=== PATIENT | female | born 1935 | race Caucasian/White ===

== ENCOUNTER 2016-11-12 11:09 | Observation (INO) ==
--- NOTE | 2016-11-12 11:24 | Emergency Department Note ---
Disposition Clinical Impression: Hypoxia, Acute exacerbation of chronic obstructive airways disease Left rib fracture Qualifiers: Encounter type: initial encounter Rib fracture type: single rib Fracture type: closed Qualified Code(s): S22.32XA - Fracture of one rib, left side, initial encounter for closed fracture Disposition: Admitted As Inpatient Condition: Good Referrals: NO,PCP [Non-Partnered Physician] - Forms: ED Satisfaction Letter SOB HPI - General Chief Complaint: ED Shortness of Breath/Dyspnea Stated Complaint: SEBLE/Left rib fracture Time Seen by Provider: 11/12/16 11:15 Source: patient Limitations: no limitations - History of Present Illness 81-year-old female history of A. fib on anticoagulation with Coumadin who presents to the ER with left rib pain and shortness of breath. Patient reports she recently fell a few days ago landing on her left ribs on a coffee table. Denies loss of consciousness or prodromal symptoms. Patient was seen in another facility and diagnosed with the ninth left rib fracture. Patient reports today she had worsening pain at home and was having worsening shortness of breath. She reports a cough with productive yellow sputum. She denies a history of DVT or PE. No other complaints. Pt Subjective Complaint: shortness of breath Onset (ago): hour(s) Context: other (Recent rib fracture) Severity: moderate Consistency/Duration: constant Improves with: nothing Worsens with: nothing Known history of: other (Rib fracture) Associated symptoms: Reports: pain with inspiration, cough, sputum production Treatment prior to arrival: none Cough present: Yes Cough Description: Involuntary Cough Frequency: Intermittent Sputum production: Yes Sputum Amount: Small Sputum Color: Yellow - Related Data Home oxygen amount: none Home Medications Medication Instructions Recorded Confirmed Albuterol Sulfate [Albuterol 2 puff IH Q6HR 11/20/15 03/08/16 Inhaler] Amlodipine [Norvasc] 5 mg PO DAILY 11/20/15 03/08/16 Budesonide/Formoterol 160/4.5 2 puff IH BIDR 11/20/15 03/08/16 [Symbicort 160/4.5] Cholecalciferol (Vitamin D3) 2,000 unit PO DAILY 11/20/15 03/08/16 [Vitamin D] Furosemide [Lasix] 40 mg PO BID 11/20/15 03/08/16 Isosorbide MONOnitrate (24 HR) 60 mg PO DAILY 11/20/15 03/08/16 [Imdur] Levothyroxine [Synthroid] 137 mcg PO 0630 11/20/15 03/08/16 Breaks-3/Dha/Epa/Fish Oil [Fish Oil 900 mg PO DAILY 11/20/15 03/08/16 1,000 mg Softgel] Omeprazole [PriLOSEC] 40 mg PO DAILY 11/20/15 03/08/16 Pnv with Ca,No.72/Iron,Carb/FA 1 tab PO DAILY 11/20/15 03/08/16 [ Plus Iron Tablet] Polyethylene Glycol 3350 [MiraLAX] 17 gm PO DAILY 11/20/15 03/08/16 Potassium Chloride [Klor-Con] 20 meq PO DAILY 11/20/15 03/08/16 Simvastatin [Zocor] 10 mg PO DAILY 11/20/15 03/08/16 Warfarin [Coumadin] 5 mg PO DAILY 11/20/15 03/08/16 Albuterol Neb [Proventil Neb] 2.5 mg IH BID 03/08/16 03/08/16 Calcium Carbonate [Calcium] 600 mg PO TID 03/08/16 03/08/16 Gabapentin [Neurontin] 300 mg PO TID 03/08/16 03/08/16 Metoprolol Tartrate [Lopressor] 50 mg PO BID 03/08/16 03/08/16 Mometasone Furoate [Elocon] 1 appl TP BID 03/08/16 03/08/16 Nitroglycerin [Nitrostat] 0.4 mg SL AD PRN 03/08/16 03/08/16 Losartan/HCTZ [Hyzaar 50-12.5 1 each PO DAILY 11/09/16 11/09/16 Tablet] Previous Rx's Medication Instructions Recorded HYDROcodone/Acet 5/325 mg [[place] 1 tab PO Q8H PRN #5 tab 11/10/16 5-325 mg] Allergies Allergy/AdvReac Type Severity Reaction Status Date / Time Milk Containing Products AdvReac Cough Verified 11/09/16 22:48 All systems ED: reviewed and negative except as stated. Constitutional: Denies: fever Cardiovascular: Reports: chest pain Respiratory: Reports: cough, dyspnea. Denies: wheezes, hemoptysis Gastrointestinal: Denies: abdominal pain, nausea, vomiting Musculoskeletal: Denies: back pain, neck pain Past Medical History - Past Medical History Attestation: Yes The following information was validated with the patient. Source: patient Medical history: Reports: asthma, atrial fibrillation, COPD, coronary artery disease, GERD, hyperlipidemia, hypertension, osteoporosis, thyroid disease, other Surgical history: Reports: appendectomy, cholecystectomy, hysterectomy, knee replacement, orthopedic, other, other Psychiatric history: Reports: depression - Social History Smoking Status: Never smoker Smokeless Tobacco Status: No Alcohol use: Reports: none Drug use: Reports: none Physical Exam - General Limitations: no limitations General appearance: alert, in no apparent distress - Head Head exam: atraumatic, normocephalic, normal inspection - Eye Eye exam: Present: normal appearance, EOMI - ENT ENT exam: normal exam - Neck Neck exam: Present: normal inspection - Chest Chest inspection: Present: normal inspection, symmetric chest wall rise, tenderness (Tenderness to palpate along the left inferior rib margins), other ( There is ecchymosis overlying the left inferior ribs going into the left flank.) - Respiratory Respiratory exam: Present: normal lung sounds bilaterally - Cardiovascular Cardiovascular exam: Present: normal rhythm, tachycardia, normal heart sounds - Abdominal Exam Abdominal exam: Present: soft, Non-Tender. Absent: tenderness - Extremities Exam Extremities exam: Present: normal inspection, full ROM - Expanded Upper Extremity Exam Shoulder exam: Present: normal inspection, full ROM Arm exam: Present: normal inspection, full ROM Elbow exam: Present: normal inspection, full ROM Forearm/Wrist exam: Present: normal inspection, full ROM Hand exam: Present: normal inspection, full ROM - Expanded Lower Extremity Exam Hip/Pelvis exam: Present: normal inspection, full ROM Upper leg exam: Present: normal inspection, full ROM Knee exam: Present: normal inspection, full ROM Lower leg exam: Present: normal inspection, full ROM Ankle exam: Present: normal inspection, full ROM Foot/toe exam: Present: normal inspection, full ROM - Neurological Exam Neurological exam: Present: alert - Psychiatric Psychiatric exam: Present: normal affect, normal mood - Skin Skin exam: Present: warm, dry, intact, normal color Course Course Narrative: Patient seen and examined. Vital signs reviewed. We will get an EKG, chest x- ray as well as basic labs including coag studies. She does have an oxygen requirement here being 88-89% on room air. Vital Signs Temperature 98.5 F 03/24/17 11:13 Pulse Rate 112 11/12/16 11:13 Respiratory Rate 18 11/12/16 11:13 Blood Pressure 109/88 11/12/16 11:13 O2 Sat by Pulse Oximetry 90 L 11/12/16 11:13 Temperature 98.5 F 11/12/16 11:13 Pulse Rate 112 11/12/16 11:13 Respiratory Rate 18 11/12/16 11:13 Blood Pressure 109/88 11/12/16 11:13 O2 Sat by Pulse Oximetry 90 L 11/12/16 11:13 Oxygen Delivery Oxygen Delivery Room Air Shortness of Breath/Dyspnea - MDM Narrative Medical decision making narrative: 81-year-old female presents to the ER due to left rib pain status post fall 2 days ago when she was diagnosed with a rib fracture. Also had increasing shortness of breath. She was initially hypoxic here on 88-89% on room air. Easily corrected with nasal cannula oxygen supplementation. EKG demonstrates atrial fibrillation which is chronic. Patient given IV fentanyl here for pain control. Admitted to the hospitalist service for pain control and hypoxia. - Lab Data Lab results reviewed: Yes I reviewed the patient's lab results. Result diagrams: 11/12/16 12:34 11/12/16 12:34 Lab Results 11/12/16 11/12/16 11/12/16 Range/Units 12:34 12:34 12:34 WBC 6.9 (4.3-11.1) K/mcL RBC 4.24 (3.82-4.97) M/mcL Hgb 12.9 (11.5-15.4) g/dL Hct 39.1 (35.3-44.9) % MCV 92.2 (83.0-100.0) fL MCH 30.4 (28.0-33.3) pg MCHC 33.0 (31.6-35.5) g/dL RDW 13.3 (11.5-14.5) % Plt Count 182 (140-400) K/mcL MPV 9.5 (9.4-12.4) fL Immature Gran % 0.1 (0-4) % Seg Neutrophils % 63.9 % Lymphocytes % 19.2 % Monocytes % 7.5 % Eosinophils % 8.6 % Basophils % 0.7 % Neutrophils # 4.4 (1.6-8.9) K/mcL Lymphocytes # 1.3 (0.6-4.6) K/mcL Monocytes # 0.5 (0.0-1.3) K/mcL Eosinophils # 0.6 (0.0-0.6) K/mcL Basophils # 0.1 (0.0-0.2) K/mcL PT 22.4 H (9.4-12.1) Seconds INR 2.0 Sodium 139 (136-145) mEq/L Potassium 2.9 L (3.5-4.5) mEq/L Chloride 101 (98-109) mEq/L Carbon Dioxide 29 (19-29) mEq/L BUN 26 H (7-20) mg/dL Creatinine 0.85 (0.57-1.11) mg/dL Est GFR ( Amer) > 60 (> 60) Est GFR (Non-Af Amer) > 60 (> 60) BUN/Creatinine Ratio 31 H (6-26) Glucose 110 H (70-99) mg/dL Calculated Osmolality 293 (280-300) Calcium 9.2 (8.6-10.8) mg/dL Troponin I (0-0.03) ng/mL B-Natriuretic Peptide (0-100) pg/mL 11/12/16 11/12/16 Range/Units 12:34 12:34 WBC (4.3-11.1) K/mcL RBC (3.82-4.97) M/mcL Hgb (11.5-15.4) g/dL Hct (35.3-44.9) % MCV (83.0-100.0) fL MCH (28.0-33.3) pg MCHC (31.6-35.5) g/dL RDW (11.5-14.5) % Plt Count (140-400) K/mcL MPV (9.4-12.4) fL Immature Gran % (0-4) % Seg Neutrophils % % Lymphocytes % % Monocytes % % Eosinophils % % Basophils % % Neutrophils # (1.6-8.9) K/mcL Lymphocytes # (0.6-4.6) K/mcL Monocytes # (0.0-1.3) K/mcL Eosinophils # (0.0-0.6) K/mcL Basophils # (0.0-0.2) K/mcL PT (9.4-12.1) Seconds INR Sodium (136-145) mEq/L Potassium (3.5-4.5) mEq/L Chloride (98-109) mEq/L Carbon Dioxide (19-29) mEq/L BUN (7-20) mg/dL Creatinine (0.57-1.11) mg/dL Est GFR ( Amer) (> 60) Est GFR (Non-Af Amer) (> 60) BUN/Creatinine Ratio (6-26) Glucose (70-99) mg/dL Calculated Osmolality (280-300) Calcium (8.6-10.8) mg/dL Troponin I 0.02 (0-0.03) ng/mL B-Natriuretic Peptide 90 (0-100) pg/mL - Radiology Data Radiology results reviewed: Yes I reviewed the patient's radiology results. Chest X-Ray 11/12/16 11:17 IMPRESSION: COPD without evidence of superimposed acute cardiopulmonary process. D/ / 11/12/2016 11:50:57 Leonides Chong MD / Lindsay Vallejo Interpreting Provider: Leonides Chong MD - EKG Data EKG attestation: Yes I reviewed and interpreted this EKG. EKG results narrative: EKG demonstrates atrial fibrillation with RVR with a rate of 108. Normal axis. QRS duration 90 QTc 389 there is T-wave flattening in the inferior leads. No ST elevations or depressions. No acute ischemic findings. No significant changes from previous EKG dated 06/29/15. S.B.A.R. - S.B.A.R. Situation: Demographics, MOA Background: Presenting Complaint, Relevant PMH, Meds, & Allergies Assessment: Vital Signs, Course and respsone to treatment, Exam Concerns, Patient/Family Expectation, Pertinant Lab Results, Outstanding Labs Recommendation: Barrier(s) to disposition, Recommendation based on pending studies, treatments, or consults S.B.A.R. Report Given to: Sandra DickeyBAmberASergio Repor Time: 14:08 Attestation Statement - Attestation Attestation: I personally interviewed and examined this patient and my medical decision- making was reviewed with the ED Resident Physician, Dr. Sibley. I agree with the documented findings, disposition and treatment plan as described in the documentation. Patient in a 1-year-old white female history of COPD who presents to the emergency department today with worsening shortness of breath following a fall with subsequent rib fracture last week. Patient states she has been having ongoing chest wall pain in the area of the rib fracture as well as shortness of breath. Patient arrives with hypoxia room air, is not on oxygen at home. Patient was here concerned with possible pneumonia. Patient is in no respiratory distress on arrival despite the reported hypoxia, able to talk in complete sentences. She denies any chest pain or heaviness no diaphoresis, no other associated symptoms. On exam patient had some coarse breath sounds in the left lung base but equal excursion bilaterally. She was placed on supplemental oxygen and chest imaging was negative for any infiltrate or pleural effusion. Labs were unremarkable including a negative troponin and EKG was within normal limits. We will admit patient for further respiratory therapy, pain control and monitoring.
[2016-11-12 12:41] LABS: Basophils # 0.1 K/mcL (0.0-0.2); Basophils % 0.7 %; Eosinophils # 0.6 K/mcL (0.0-0.6); Eosinophils % 8.6 %; Hematocrit 39.1 % (35.3-44.9); Hemoglobin 12.9 g/dL (11.5-15.4); Immature Granulocytes % 0.1 % (0-4); Lymphocytes # 1.3 K/mcL (0.6-4.6); Lymphocytes % 19.2 %; Mean Corpuscular Hemoglobin 30.4 pg (28.0-33.3); Mean Corpuscular Volume 92.2 fL (83.0-100.0); Mean Platelet Volume 9.5 fL (9.4-12.4); Monocytes # 0.5 K/mcL (0.0-1.3); Monocytes % 7.5 %; Neutrophils # 4.4 K/mcL (1.6-8.9); Platelet Count 182 K/mcL (140-400); Red Blood Count 4.24 M/mcL (3.82-4.97); Red Cell Distribution Width 13.3 % (11.5-14.5); Segmented Neutrophils % 63.9 %
[2016-11-12 12:47] LABS: Prothrombin Time 22.4 Seconds (9.4-12.1)
[2016-11-12 12:55] LABS: BUN/Creatinine Ratio 31 (6-26); Blood Urea Nitrogen 26 mg/dL (7-20); Calcium 9.2 mg/dL (8.6-10.8); Carbon Dioxide 29 mEq/L (19-29); Chloride 101 mEq/L (98-109); Glucose 110 mg/dL (70-99); Osmolality,Calculated 293 (280-300); Potassium 2.9 mEq/L (3.5-4.5); Sodium 139 mEq/L (136-145); eGFR For African Americans > 60 (> 60); eGFR For Non-African Americans > 60 (> 60)
[2016-11-12] MEDS ORDERED: *HR* FentaNYL (PF) 100 MCG/2 ML VIAL IVP ONE (13:40)
[2016-11-12] MEDS ORDERED: Naloxone 0.4 MG/ML INJ IVP PRN (16:35)
[2016-11-12] MEDS ORDERED: Albuterol 2.5 MG/3 ML NEBULIZER IH PRN (16:36)
[2016-11-12] MEDS ORDERED: *HR* Morphine 2 MG/ML SYRINGE IVP PRN (16:36)
[2016-11-12] MEDS ORDERED: methylPREDNISolone 125 MG/2 ML VIAL IVP ONE (16:40)
[2016-11-12] MEDS ORDERED: Nitroglycerin 0.4 MG TAB.SUBL SL PRN (16:51)
[2016-11-12] MEDS ORDERED: Potassium Chloride 40 MEQ, Lidocaine 1% 2 ML in D5% in Water 500 ML IVPB ONE (16:58)
[2016-11-12] MEDS: Ipratropium/Albuterol Neb 3 ML IH SCH ×2 (17:07→23:05)
[2016-11-12] MEDS: Furosemide 40 MG TABLET PO SCH (18:04)
[2016-11-12] MEDS: *HR* Warfarin 5 MG TABLET PO SCH (19:01)
[2016-11-12] MEDS: Gabapentin 300 MG CAPSULE PO SCH (20:59)
[2016-11-12] MEDS: *HR* HYDROcodone/Acet 5/325 mg TABLET PO PRN (21:00)
--- NOTE | 2016-11-12 21:14 | Internal Med History&Physical ---
<AcostaSandra M - Last Filed: 11/13/16 00:45> Date of Encounter: 11/12/16 Time of Encounter: 21:07 Assessment and Plan (1) Acute exacerbation of chronic obstructive airways disease Current visit: Yes Status: Acute Patient with increased shortness of breath, cough, wheezing satting 88-89% in room air, improved saturations on 2 L nasal cannula. Chest x-ray shows COPD without acute cardiopulmonary process. On exam patient with diffuse wheezes bilaterally. Solu-Medrol one time dose of 125 mg IV push, followed by 40 mg 3 times a day. DuoNeb treatments 4 times a day Albuterol nebulizer every 2 when necessary Titrate oxygen to maintain oxygen saturation greater than 92% (2) Hypoxia Current visit: Yes Status: Acute Patient with increased shortness of breath, cough, wheezing satting 88-89% in room air, improved saturations on 2 L nasal cannula. (3) Left rib fracture Current visit: Yes Status: Acute Patient fell a few days ago, suffering a fracture of her left 9th rib. Her pain is not well controlled at home. Teach patient to splint with cough. [place] and Morphine PRN for pain Narcan PRN for respiratory depression. Qualifiers: Encounter type: subsequent encounter Rib fracture type: single rib Fracture type: closed Fracture healing: with routine healing Qualified Code( s): S22.32XD - Fracture of one rib, left side, subsequent encounter for fracture with routine healing (4) DVT prophylaxis Current visit: Yes Status: Acute Ambulate with assistance anti-embolic stockings Continue patient's home dose of coumadin. Internal Medicine - H&P: HPI Chief complaint: shortness of breath Admitted From: Emergency Dept Plans for Post Hospital Care: Home History of present illness: Ms. Erickson is a 81 year old female GERD, who presented to the emergency department today with complaints of shortness of breath, wheezing and pain after suffering a rib fracture a few days ago. Patient reports that since her rib fracture she has developed increasing shortness of breath and cough. The patient reports that she has audible wheezes and rattles that improved after DuoNeb treatment in the emergency department. She is not on oxygen at home but was satting 88-89% on room air on presentation patient reports she felt a little bit lightheaded, and nauseous. Headache, chest pain, palpitations, abdominal pain, vomiting, diarrhea. She endorses some constipation that she attributes to the narcotic pain medicine she has been put on for rib fracture. Evaluation in the emergency department included a chest x-ray which showed COPD without acute cardiopulmonary process. She was hypokalemic with potassium of 2.9. INR was therapeutic at 2.0. Troponin was negative at 0.02. BNP was normal at 90. On exam, patient is alert and oriented, in no acute distress. She has diffuse wheezing bilaterally. Heart has regular rate and rhythm. She is tender to palpation over left lateral side and has a hematoma in her left lateral side. Past Med Surg Social Fam HX - Past Medical History Medical history: asthma, atrial fibrillation, COPD, coronary artery disease, GERD, hyperlipidemia, hypertension, osteoporosis, thyroid disease, other Psychiatric history: depression - Past Surgical History Surgical History: appendectomy, cholecystectomy, hysterectomy, knee replacement , orthopedic, other, other - Social History Smoking Status: Never smoker Smokeless Tobacco Status: No Alcohol use: none Drug use: none - Family History Mother Hx Family Cancer: Yes (Colon CA) Father Hx Family Cancer: Yes (Bladder CA) Internal Medicine - H&P: Meds Albuterol Sulfate [Albuterol Inhaler] 2 puff IH Q6HR 11/20/15 [History] Amlodipine [Norvasc] 5 mg PO DAILY 11/20/15 [History] Budesonide/Formoterol 160/4.5 [Symbicort 160/4.5] 2 puff IH BIDR 11/20/15 [ History] Cholecalciferol (Vitamin D3) [Vitamin D] 2,000 unit PO DAILY 11/20/15 [History] Furosemide [Lasix] 40 mg PO BID 11/20/15 [History] Isosorbide MONOnitrate (24 HR) [Imdur] 60 mg PO DAILY 11/20/15 [History] Levothyroxine [Synthroid] 137 mcg PO 0630 11/20/15 [History] [place]-3/Dha/Epa/Fish Oil [Fish Oil 1,000 mg Softgel] 900 mg PO DAILY 11/20/15 [ History] Omeprazole [PriLOSEC] 40 mg PO DAILY 11/20/15 [History] Pnv with Ca,No.72/Iron,Carb/FA [ Plus Iron Tablet] 1 tab PO DAILY [History] Polyethylene Glycol 3350 [MiraLAX] 17 gm PO DAILY 11/20/15 [History] Potassium Chloride [Klor-Con] 20 meq PO DAILY 11/20/15 [History] Simvastatin [Zocor] 10 mg PO DAILY 11/20/15 [History] Warfarin [Coumadin] 5 mg PO 6XW 11/20/15 [History] Albuterol Neb [Proventil Neb] 2.5 mg IH BID 03/08/16 [History] Gabapentin [Neurontin] 300 mg PO TID 03/08/16 [History] Metoprolol Tartrate [Lopressor] 50 mg PO BID 03/08/16 [History] Mometasone Furoate [Elocon] 1 appl TP BID 03/08/16 [History] Nitroglycerin [Nitrostat] 0.4 mg SL AD PRN 03/08/16 [History] Losartan/HCTZ [Hyzaar 50-12.5 Tablet] 1 each PO DAILY 11/09/16 [History] HYDROcodone/Acet 5/325 mg [[place] 5-325 mg] 1 tab PO Q8H PRN #5 tab 11/10/16 [Rx] Acetylcysteine [Nac] 500 mg PO DAILY 11/12/16 [History] Calcium Crb,Cit/D3/Min34/[place] [Citracal + Bone Density Tablet] 1 tab PO DAILY 11/12/16 [History] Warfarin [Coumadin] 2.5 mg PO WHITE 11/12/16 [History] Allergies Milk Containing Products Adverse Reaction (Verified 11/09/16 22:48) Cough All Systems PM: A 10-system review of systems was performed and is negative for pertinent findings except as documented above in the HPI. - Constitutional Constitutional: no chills, no fever(s), no night sweats - EENT Eyes: no change in vision, no discharge, no pain, no photophobia Ears: no ear discharge, no ear pain, no tinnitus Nose, mouth and throat: no dysphagia, no nasal discharge, no neck pain, no sore throat - Cardiovascular Cardiovascular ROS IM: no chest pain, no diaphoresis, no dyspnea, no lightheadedness, no palpitations, no syncope - Respiratory Respiratory: cough, dyspnea on exertion, wheezing, excessive phlegm production - Gastrointestinal Gastrointestinal: constipation, no abdominal pain, no diarrhea, no hematemesis, no hematochezia, no melena, no nausea, no vomiting - Genitourinary Genitourinary: no change in urinary stream, no dysuria, no flank pain, no hematuria - Musculoskeletal Musculoskeletal ROS IM: no numbness, no tingling - Integumentary Integumentary IM: no rash, no unusual bruising - Neurological Neurological ROS: no confusion, no convulsions, no focal weakness, no numbness, no tingling, no tremor(s) - Hematologic/Lymphatic Hematologic/Lymphatic: easy bruising - Constitutional Vitals: Temp Pulse Resp BP Pulse Ox 98 F 83 16 146/87 95 11/12/16 19:09 11/12/16 19:09 11/12/16 19:09 11/12/16 19:09 11/12/16 19:09 General appearance: Present: A&O X 3, pleasant, no acute distress - Head Head exam: Present: atraumatic, normocephalic - Eye Eye exam: Present: PERRL, conjuntiva pink, sclera anicteric Pupils: Present: PERRL - Neck Neck exam general surgery: Present: supple, trachea midline. Absent: lymphadenopathy - Respiratory Respiratory exam: Present: wheezes. Absent: accessory muscle use, rales, rhonchi - Cardiovascular Cardiovascular exam: Present: RRR, +S1, +S2. Absent: diastolic murmur, gallop, rubs, systolic murmur - GI/Abdominal GI/Abdominal exam: Present: normal bowel sounds, soft, no peritoneal signs. Absent: distended, tenderness Additional comments: tenderness and erythema to left lateral side - Extremities Exam Extremities exam: Present: warm, radial pulses palpable and symetrical. Absent : calf tenderness, cyanotic, pedal edema - Neurological Exam Neurological exam: Present: CN II-XII intact, oriented X3, no focal deficits. Absent: facial droop, speech deficit - Skin Skin exam: Present: dry, intact Internal Med - H&P Results - Labs CBC & Chem 7: 11/12/16 12:34 11/12/16 12:34 Labs: All Lab Results (24 Hours) 11/12/16 11/12/16 11/12/16 Range/Units 12:34 12:34 12:34 WBC 6.9 (4.3-11.1) K/mcL RBC 4.24 (3.82-4.97) M/mcL Hgb 12.9 (11.5-15.4) g/dL Hct 39.1 (35.3-44.9) % MCV 92.2 (83.0-100.0) fL MCH 30.4 (28.0-33.3) pg MCHC 33.0 (31.6-35.5) g/dL RDW 13.3 (11.5-14.5) % Plt Count 182 (140-400) K/mcL MPV 9.5 (9.4-12.4) fL Immature Gran % 0.1 (0-4) % Seg Neutrophils % 63.9 % Lymphocytes % 19.2 % Monocytes % 7.5 % Eosinophils % 8.6 % Basophils % 0.7 % Neutrophils # 4.4 (1.6-8.9) K/mcL Lymphocytes # 1.3 (0.6-4.6) K/mcL Monocytes # 0.5 (0.0-1.3) K/mcL Eosinophils # 0.6 (0.0-0.6) K/mcL Basophils # 0.1 (0.0-0.2) K/mcL PT 22.4 H (9.4-12.1) Seconds INR 2.0 Sodium 139 (136-145) mEq/L Potassium 2.9 L (3.5-4.5) mEq/L Chloride 101 (98-109) mEq/L Carbon Dioxide 29 (19-29) mEq/L BUN 26 H (7-20) mg/dL Creatinine 0.85 (0.57-1.11) mg/dL Est GFR ( Amer) > 60 (> 60) Est GFR (Non-Af Amer) > 60 (> 60) BUN/Creatinine Ratio 31 H (6-26) Glucose 110 H (70-99) mg/dL Calculated Osmolality 293 (280-300) Calcium 9.2 (8.6-10.8) mg/dL Magnesium (1.6-2.6) mg/dL Troponin I (0-0.03) ng/mL B-Natriuretic Peptide (0-100) pg/mL 11/12/16 11/12/16 11/12/16 Range/Units 12:34 12:34 17:25 WBC (4.3-11.1) K/mcL RBC (3.82-4.97) M/mcL Hgb (11.5-15.4) g/dL Hct (35.3-44.9) % MCV (83.0-100.0) fL MCH (28.0-33.3) pg MCHC (31.6-35.5) g/dL RDW (11.5-14.5) % Plt Count (140-400) K/mcL MPV (9.4-12.4) fL Immature Gran % (0-4) % Seg Neutrophils % % Lymphocytes % % Monocytes % % Eosinophils % % Basophils % % Neutrophils # (1.6-8.9) K/mcL Lymphocytes # (0.6-4.6) K/mcL Monocytes # (0.0-1.3) K/mcL Eosinophils # (0.0-0.6) K/mcL Basophils # (0.0-0.2) K/mcL PT (9.4-12.1) Seconds INR Sodium (136-145) mEq/L Potassium (3.5-4.5) mEq/L Chloride (98-109) mEq/L Carbon Dioxide (19-29) mEq/L BUN (7-20) mg/dL Creatinine (0.57-1.11) mg/dL Est GFR ( Amer) (> 60) Est GFR (Non-Af Amer) (> 60) BUN/Creatinine Ratio (6-26) Glucose (70-99) mg/dL Calculated Osmolality (280-300) Calcium (8.6-10.8) mg/dL Magnesium 1.8 (1.6-2.6) mg/dL Troponin I 0.02 (0-0.03) ng/mL B-Natriuretic Peptide 90 (0-100) pg/mL - Diagnostic Studies Chest x-ray Additional comments: Chest X-Ray 11/12/16 11:17 IMPRESSION: COPD without evidence of superimposed acute cardiopulmonary process. D/ / 11/12/2016 11:50:57 Leonides Chong MD / Lindsay Vallejo Interpreting Provider: Leonides Chong MD <Ward Morgan - Last Filed: 11/13/16 05:00> Internal Medicine - H&P: HPI History of present illness: Ms. Erickson is a 81 year old female All Systems PM: A 10-system review of systems was performed and is negative for pertinent findings except as documented above in the HPI. - Constitutional Vitals: Temp Pulse Resp BP Pulse Ox 97.5 F L 67 16 110/70 93 L 11/12/16 23:26 11/12/16 23:26 11/12/16 23:26 11/12/16 23:26 11/12/16 23:26 Internal Med - H&P Results - Labs CBC & Chem 7: 11/12/16 12:34 11/12/16 12:34 - Attending Attestation I examined this patient and my medical decision-making was reviewed with the MEDICAL RADIATION THERAPIST/PA/Advanced Practice Nurse/Resident Physician. I agree with the documented findings, disposition and treatment plan as described except to the extent set forth below. COPD exacerbation, recurrent fracture. Continue current management. Continue Coumadin. Monitor INR.
[2016-11-12] MEDS: Budesonide/Formoterol 160/4.5 MDI IH SCH (23:05)
[2016-11-13] MEDS: MethylPREDNISolone 40 MG/ML VIAL IVP SCH ×3 (00:19→17:01)
[2016-11-13] MEDS: Ipratropium/Albuterol Neb 3 ML IH SCH ×4 (05:14→22:46)
[2016-11-13 05:15] LABS: Basophils % 0.3 %; Hematocrit 41.7 % (35.3-44.9); Immature Granulocytes % 0.3 % (0-4); Lymphocytes # 0.8 K/mcL (0.6-4.6); Lymphocytes % 22.3 %; Mean Corpuscular HGB Conc 33.6 g/dL (31.6-35.5); Mean Corpuscular Volume 92.5 fL (83.0-100.0); Mean Platelet Volume 9.8 fL (9.4-12.4); Monocytes % 0.9 %; Neutrophils # 2.6 K/mcL (1.6-8.9); Platelet Count 191 K/mcL (140-400); Red Blood Count 4.51 M/mcL (3.82-4.97); Red Cell Distribution Width 13.3 % (11.5-14.5); Segmented Neutrophils % 76.2 %
[2016-11-13 05:21] LABS: INR 1.8; Prothrombin Time 19.8 Seconds (9.4-12.1)
[2016-11-13 05:24] LABS: Activated Partial Thrombo Time 34.7 Seconds (26.0-36.0)
[2016-11-13 05:30] LABS: BUN/Creatinine Ratio 29 (6-26); Blood Urea Nitrogen 23 mg/dL (7-20); Calcium 9.1 mg/dL (8.6-10.8); Carbon Dioxide 27 mEq/L (19-29); Chloride 103 mEq/L (98-109); Glucose 148 mg/dL (70-99); Osmolality,Calculated 296 (280-300); Potassium 3.6 mEq/L (3.5-4.5); Sodium 140 mEq/L (136-145); eGFR For African Americans > 60 (> 60); eGFR For Non-African Americans > 60 (> 60)
[2016-11-13 05:40] LABS: Platelet Estimate Normal (Normal); Reactive Lymphocytes Present (Not Present)
[2016-11-13] MEDS: Furosemide 40 MG TABLET PO SCH ×2 (08:46→17:02)
[2016-11-13] MEDS: Losartan/HCTZ 50-12.5 TABLET PO SCH (08:47)
[2016-11-13] MEDS: amLODIPine 5 MG TABLET PO SCH (08:58)
[2016-11-13] MEDS: (Omega-3/Dha/Epa/Fish Oil [Fish Oil 1,000 Mg Softgel]) PO SCH (08:59)
[2016-11-13] MEDS: ACETYLCYSTEINE 500 MG PO SCH (08:59)
[2016-11-13] MEDS: Isosorbide MONOnitrate (24 HR) 60 MG TAB.ER.24H PO SCH (09:00)
[2016-11-13] MEDS: Cholecalciferol (D-3) 1,000 UNIT TABLET PO SCH (09:00)
[2016-11-13] MEDS: Gabapentin 300 MG CAPSULE PO SCH ×3 (09:00→20:04)
[2016-11-13] MEDS: Budesonide/Formoterol 160/4.5 MDI IH SCH ×2 (10:03→22:46)
--- NOTE | 2016-11-13 10:48 | Internal Med Progress Note ---
Date of Encounter: 11/13/16 Time of Encounter: 10:46 - Assessment and plan (1) Atrial fibrillation Current Visit: Yes Status: Chronic Assessment and plan: currently in sinus rhythm Qualifiers: Atrial fibrillation type: paroxysmal Qualified Code(s): I48.0 - Paroxysmal atrial fibrillation (2) CAD (coronary artery disease) Current Visit: Yes Status: Acute Assessment and plan: no chest pain Qualifiers: Coronary Disease-Associated Artery/Lesion type: [place] artery [place] vs. transplanted heart: transplanted heart Associated angina: without angina Qualified Code(s): I25.811 - Atherosclerosis of [place] coronary artery of transplanted heart without angina pectoris (3) Rib fracture Current Visit: No Status: Acute Assessment and plan: no pneumothorax will give pain med prn Qualifiers: Encounter type: initial encounter Rib fracture type: single rib Fracture type: closed Laterality: right Qualified Code(s): S22.31XA - Fracture of one rib, right side, initial encounter for closed fracture (4) Left rib fracture Current Visit: Yes Status: Acute Qualifiers: Encounter type: subsequent encounter Rib fracture type: single rib Fracture type: closed Fracture healing: with routine healing Qualified Code( s): S22.32XD - Fracture of one rib, left side, subsequent encounter for fracture with routine healing (5) Acute exacerbation of chronic obstructive airways disease Current Visit: Yes Status: Acute Assessment and plan: acute on chronic copd exercebation no pneumonia continue steroid and duoneb - Subjective Interval history: Patient with history of gerd, copd, cad atrial and increased chol patient presents wih increased sob and wheezing chest x ray no pneumonia had left rib fracture no pneumothorax Today says she feels mcub better - Constitutional Vitals: Temp Pulse Resp BP Pulse Ox 97.6 F 78 18 108/65 92 L 11/13/16 07:00 11/13/16 07:00 11/13/16 07:00 11/13/16 07:00 11/13/16 07:00 General appearance: Present: A&O X 3, pleasant, no acute distress - Head Head exam: Present: atraumatic, normocephalic - Eye Eye exam: Present: PERRL, conjuntiva pink, sclera anicteric Pupils: Present: PERRL - Neck Neck exam general surgery: Present: supple, trachea midline. Absent: lymphadenopathy - Respiratory Respiratory exam: Present: rhonchi, wheezes - Cardiovascular Cardiovascular exam: Present: RRR, +S1, +S2. Absent: diastolic murmur, gallop, rubs, systolic murmur - GI/Abdominal GI/Abdominal exam: Present: normal bowel sounds, soft, no peritoneal signs. Absent: distended, tenderness Internal Medicine: Result - Labs CBC & Chem 7: 11/13/16 04:48 11/13/16 04:48 Labs: Short CBC 11/13/16 Range/Units 04:48 WBC 3.4 L D (4.3-11.1) K/mcL Hgb 14.0 (11.5-15.4) g/dL Hct 41.7 (35.3-44.9) % Plt Count 191 (140-400) K/mcL Neutrophils # 2.6 (1.6-8.9) K/mcL BMP 11/13/16 04:48 Sodium 140 Potassium 3.6 Chloride 103 Carbon Dioxide 27 BUN 23 H Creatinine 0.80 Glucose 148 H Calcium 9.1 - ABG Interpretation ABG results: PT/INR, D-dimer PT 19.8 Seconds (9.4-12.1) H 11/13/16 04:48 Consult Discharge Plan - Plan Referrals: Figueroa Kulkarni MD [Primary Care Provider] -
[2016-11-13] MEDS: *HR* Warfarin 5 MG TABLET PO SCH (17:02)
[2016-11-13] MEDS ORDERED: *HR* Warfarin 5 MG TABLET PO SCH ×2 (18:00→18:43)
[2016-11-14] MEDS: MethylPREDNISolone 40 MG/ML VIAL IVP SCH ×4 (00:30→14:45)
[2016-11-14] MEDS: *HR* HYDROcodone/Acet 5/325 mg TABLET PO PRN (04:25)
[2016-11-14] MEDS: Ipratropium/Albuterol Neb 3 ML IH SCH ×3 (04:33→16:12)
[2016-11-14 06:22] LABS: INR 2.7; Prothrombin Time 29.7 Seconds (9.4-12.1)
[2016-11-14 06:32] VITALS: BP 109/68
--- NOTE | 2016-11-14 07:40 | Electrocardiograph Report ---
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
[2016-11-14] MEDS: Furosemide 40 MG TABLET PO SCH (07:46)
[2016-11-14] MEDS: Losartan/HCTZ 50-12.5 TABLET PO SCH (07:47)
[2016-11-14] MEDS: ACETYLCYSTEINE 500 MG PO SCH (07:47)
[2016-11-14] MEDS: amLODIPine 5 MG TABLET PO SCH (07:47)
[2016-11-14] MEDS: Cholecalciferol (D-3) 1,000 UNIT TABLET PO SCH (08:05)
[2016-11-14] MEDS: Gabapentin 300 MG CAPSULE PO SCH ×2 (08:05→14:53)
[2016-11-14] MEDS: Isosorbide MONOnitrate (24 HR) 60 MG TAB.ER.24H PO SCH (08:05)
[2016-11-14] MEDS: (Omega-3/Dha/Epa/Fish Oil [Fish Oil 1,000 Mg Softgel]) PO SCH (08:06)
[2016-11-14] MEDS: Budesonide/Formoterol 160/4.5 MDI IH SCH (10:11)
--- NOTE | 2016-11-14 14:35 | Discharge Summary ---
Date of Encounter: 11/14/16 Time of Encounter: 14:32 - Discharge Diagnosis (1) Atrial fibrillation Priority: Secondary Status: Chronic Comments: currently in sinus Qualifiers: Atrial fibrillation type: paroxysmal Qualified Code(s): I48.0 - Paroxysmal atrial fibrillation (2) CAD (coronary artery disease) Priority: Secondary Status: Acute Comments: no chest pain Qualifiers: Coronary Disease-Associated Artery/Lesion type: [place] artery [place] vs. transplanted heart: transplanted heart Associated angina: without angina Qualified Code(s): I25.811 - Atherosclerosis of [place] coronary artery of transplanted heart without angina pectoris (3) Rib fracture Priority: Secondary Status: Acute Comments: no complication Qualifiers: Encounter type: initial encounter Rib fracture type: single rib Fracture type: closed Laterality: right Qualified Code(s): S22.31XA - Fracture of one rib, right side, initial encounter for closed fracture (4) Left rib fracture Priority: Secondary Status: Acute Qualifiers: Encounter type: subsequent encounter Rib fracture type: single rib Fracture type: closed Fracture healing: with routine healing Qualified Code( s): S22.32XD - Fracture of one rib, left side, subsequent encounter for fracture with routine healing (5) Acute exacerbation of chronic obstructive airways disease Priority: Primary Status: Acute Comments: clinically much better wanting to go home - Discharge Medications Home Medications: Albuterol Sulfate [Albuterol Inhaler] 2 puff IH Q6HR 11/20/15 [History] Amlodipine [Norvasc] 5 mg PO DAILY 11/20/15 [History] Budesonide/Formoterol 160/4.5 [Symbicort 160/4.5] 2 puff IH BIDR 11/20/15 [ History] Cholecalciferol (Vitamin D3) [Vitamin D3] 2,000 unit PO DAILY 11/20/15 [History] Furosemide [Lasix] 40 mg PO BID 11/20/15 [History] Isosorbide MONOnitrate (24 HR) [Imdur] 60 mg PO DAILY 11/20/15 [History] Levothyroxine [Synthroid] 137 mcg PO 0630 11/20/15 [History] [place]-3/Dha/Epa/Fish Oil [Fish Oil 1,000 mg Softgel] 900 mg PO DAILY 11/20/15 [ History] Omeprazole [PriLOSEC] 40 mg PO DAILY 11/20/15 [History] Pnv with Ca,No.72/Iron,Carb/FA [ Plus Iron Tablet] 1 tab PO DAILY [History] Polyethylene Glycol 3350 [MiraLAX] 17 gm PO DAILY 11/20/15 [History] Potassium Chloride [Klor-Con] 20 meq PO DAILY 11/20/15 [History] Simvastatin [Zocor] 10 mg PO DAILY 11/20/15 [History] Warfarin [Coumadin] 5 mg PO 6XW 11/20/15 [History] Albuterol Neb [Proventil Neb] 2.5 mg IH BID 03/08/16 [History] Gabapentin [Neurontin] 300 mg PO TID 03/08/16 [History] Metoprolol Tartrate [Lopressor] 50 mg PO BID 03/08/16 [History] Mometasone Furoate [Elocon] 1 appl TP BID 03/08/16 [History] Nitroglycerin [Nitrostat] 0.4 mg SL AD PRN 03/08/16 [History] Losartan/HCTZ [Hyzaar 50-12.5 Tablet] 1 each PO DAILY 11/09/16 [History] HYDROcodone/Acet 5/325 mg [[place] 5-325 mg] 1 tab PO Q8H PRN #5 tab 11/10/16 [Rx] Acetylcysteine [Nac] 500 mg PO DAILY 11/12/16 [History] Calcium Crb,Cit/D3/Min34/Gin[place] [Citracal + Bone Density Tablet] 1 tab PO DAILY 11/12/16 [History] Warfarin [Coumadin] 2.5 mg PO WHITE 11/12/16 [History] Allergies/Adverse Reactions: Allergies Milk Containing Products Adverse Reaction (Verified 11/09/16 22:48) Cough Date of admission: 11/12/16 14:47 Primary care physician: Figueroa Kulkarni MD Consults: 11/12/16 15:41 Consult to Staff Appraiser [CONS] Routine Reason for SW Consult: discharge planning Discharging clinician: Sil Iyer Anticipated date of discharge: 11/14/16 - Patient Status Disposition: Home Health Service Overall status at discharge: patient is back to baseline - Discharge Instructions - Diet and Activity Activity: increase activity as tolerated Diet: advance to your usual diet Hospital course: Ms. Erickson is a 81 year old female - Time Spent with Patient Total time spent providing and/or coordinating discharge services: - Constitutional Vitals: Temp Pulse Resp BP Pulse Ox 98.0 F 114 16 109/68 92 L 11/14/16 06:30 11/14/16 06:30 11/14/16 10:11 11/14/16 06:30 11/14/16 10:11 General appearance: Present: A&O X 3, pleasant, no acute distress
--- NOTE | 2016-11-14 14:38 | Physician Discharge Referral ---
Home Health/Hosp Referral Info Transfer to: Home Health Provider in Charge Post Discharge: PCP - Diagnosis (1) Atrial fibrillation Status: Chronic (2) CAD (coronary artery disease) Status: Acute (3) Rib fracture Status: Acute (4) Left rib fracture Status: Acute (5) Acute exacerbation of chronic obstructive airways disease Status: Acute - Respiratory Orders Smoking Cessation: Smoking cessation has been advised. For more information, call the [place] Tobacco Quit Line at 1-740-VQTL-NOW. - Transfer Medications Home Medications: Albuterol Sulfate [Albuterol Inhaler] 2 puff IH Q6HR 11/20/15 [History] Amlodipine [Norvasc] 5 mg PO DAILY 11/20/15 [History] Budesonide/Formoterol 160/4.5 [Symbicort 160/4.5] 2 puff IH BIDR 11/20/15 [ History] Cholecalciferol (Vitamin D3) [Vitamin D3] 2,000 unit PO DAILY 11/20/15 [History] Furosemide [Lasix] 40 mg PO BID 11/20/15 [History] Isosorbide MONOnitrate (24 HR) [Imdur] 60 mg PO DAILY 11/20/15 [History] Levothyroxine [Synthroid] 137 mcg PO 0630 11/20/15 [History] [place]-3/Dha/Epa/Fish Oil [Fish Oil 1,000 mg Softgel] 900 mg PO DAILY 11/20/15 [ History] Omeprazole [PriLOSEC] 40 mg PO DAILY 11/20/15 [History] Pnv with Ca,No.72/Iron,Carb/FA [ Plus Iron Tablet] 1 tab PO DAILY [History] Polyethylene Glycol 3350 [MiraLAX] 17 gm PO DAILY 11/20/15 [History] Potassium Chloride [Klor-Con] 20 meq PO DAILY 11/20/15 [History] Simvastatin [Zocor] 10 mg PO DAILY 11/20/15 [History] Warfarin [Coumadin] 5 mg PO 6XW 11/20/15 [History] Albuterol Neb [Proventil Neb] 2.5 mg IH BID 03/08/16 [History] Gabapentin [Neurontin] 300 mg PO TID 03/08/16 [History] Metoprolol Tartrate [Lopressor] 50 mg PO BID 07/18/16 [History] Mometasone Furoate [Elocon] 1 appl TP BID 03/08/16 [History] Nitroglycerin [Nitrostat] 0.4 mg SL AD PRN 03/08/16 [History] Losartan/HCTZ [Hyzaar 50-12.5 Tablet] 1 each PO DAILY 11/09/16 [History] HYDROcodone/Acet 5/325 mg [[place] 5-325 mg] 1 tab PO Q8H PRN #5 tab 11/10/16 [Rx] Acetylcysteine [Nac] 500 mg PO DAILY 11/12/16 [History] Calcium Crb,Cit/D3/Min34/[place] [Citracal + Bone Density Tablet] 1 tab PO DAILY 11/12/16 [History] Warfarin [Coumadin] 2.5 mg PO WHITE 11/12/16 [History] Allergies/Adverse Reactions: Allergies Milk Containing Products Adverse Reaction (Verified 11/09/16 22:48) Cough Certification: Further, I certify that my clinical findings support that this patient is homebound (i.e. absences from home require considerable and taxing effort and are for medical reasons or sikhism services or infrequently or short duration when for other reasons) because: Homebound Reason: Severity of cardiac or pulmonary status limits activity tolerance Attestation: My signature below is to certify that this patient is under my care and that I, or nurse practitioner, or a physician's assistant project engineer working with me, has a face-to -face encounter with this patient.
[2016-11-14] MEDS ORDERED: *HR* Warfarin 2.5 MG TABLET PO SCH (18:00)
== END 2016-11-14 16:33 | disposition home health service (06) ==
LOC: 3NENU 11:09 → EMEROO 11:09 → 3NENU 15:22
PROVIDERS: ADMIT Nurse Practitioner Family; ATTEND Internal Medicine